=== PATIENT | female | born 1940 | race Caucasian/White ===

== ENCOUNTER 2017-11-23 08:18 | Inpatient (IN) | payer MEDICARE, OTHER ==
[2017-11-12 10:41] LABS: ABSOLUTE EOSINOPHILS 0.2 thou/uL (0.0-0.7); ABSOLUTE LYMPHOCYTES 1.8 thou/uL (0.8-5.3); ABSOLUTE MONOCYTES 0.7 thou/uL (0.0-1.2); ABSOLUTE NEUTROPHILS 2.9 thou/uL (1.6-8.1); BASOPHILS 0.8 %; EOSINOPHILS 3.7 %; HEMATOCRIT 38.3 % (37.0-47.0); HEMOGLOBIN 12.9 gm/dL (12.0-15.0); LYMPHOCYTES 32.5 %; MCH 29.2 pg (26.0-34.0); MCHC 33.6 g/dL (28.0-37.0); MCV 86.8 fL (80.0-100.0); MPV 8.1 fl. (7.2-11.1); NUCLEATED RBCS 0 /100WBC; PLATELET COUNT* 278 thou/uL (150-400); RBC 4.41 mil/uL (4.20-5.00); RDW-CV 14.5 % (10.5-14.5); WBC 5.6 thou/uL (4.0-11.0)
[2017-11-12 10:50] LABS: APTT 26.5 Seconds (25.0-31.3); INR 1.1; PROTIME 10.4 Seconds (9.20-11.50)
[2017-11-12 10:55] LABS: ALBUMIN 3.9 g/dL (3.4-5.0); CREATININE 0.8 mg/dL (0.6-1.3); POTASSIUM 3.9 mmol/L (3.5-5.1); TOTAL BILIRUBIN 0.7 mg/dL (<0.1-1.0); TOTAL PROTEIN 7.1 g/dL (6.4-8.2)
[2017-11-12 11:48] LABS: ESR (SEDRATE) 15 mm/hr (0-30)
--- NOTE | 2017-11-12 15:23 | EKG ---
[place] [address] ELECTROCARDIOGRAM REPORT Name: HANY JIANG Room: PRE [facility]#: [id number] Admission: Attend Phys: Regis Mccray Discharge: Date of : 42 Report #: [id number] THIS REPORT FOR: //name// [facility] Test Date: 2017-11-12 Test Time: 09:20:50 Pat Name: HANY APOLINAR Department: Room: Gender: F Analog Device Designer: : 1940 Requested By: Que Ding Order Number: [id number] Jia MD: Monty Veram Measurements Intervals [place] Rate: 59 P: 0 WA: 155 QRS: 53 QRSD: 93 T: 48 QT: 404 QTc: 401 Interpretive Statements Sinus rhythm No previous ECG available for comparison Electronically Signed On 11-12-2017 15:23:17 CDT by Monty Verma [email or web address] <ELECTRONICALLY SIGNED> By: Monty Verma MD, [facility] 11/12/17 1523 0920 0920 Monty Verma MD, FACC /EPI
[~2017-11-23] VITALS: Ht 157.5 cm; Wt 69.4 kg
[~2017-11-23 08:18] MED LIST: ATORVASTATIN CA40 MG PO; CELEBREX 200 M200 M1 PO; LISINOPRIL10 MG PO; SINGULAIR 10 MG10 M1 PO; TYLENOL325 MG PO
[2017-11-23] MEDS ORDERED: ADVAIR HFA 230M12 GM INH (08:36)
[2017-11-23 09:00] VITALS: BP 140/79
[2017-11-23 16:00] VITALS: BP 126/64
--- NOTE | 2017-11-23 16:56 | NUR ---
ASSUMED CARES OF PT FROM SURGERY AT 1510. PT IN BED, BED IN LOW LOCKED POSITION, FALL PRECAUTIONS IN PLACE. CALL BUTTON AND PERSONAL ITEMS IN PT REACH. PT A&O X4, HRRR PER AUSCULTATION, LCTAB. PT LEFT TOTAL KNEE REPLACEMENT. IV 1/2 NS INFUSING 100 ML/HR. PAIN MEDS HELPING TO CONTROL SURGICAL KNEE PAIN. PT AFEBRILE, PERRLA, VSS ON 2L NC UNTIL POSTOP DAY 1. MEPILEX DRESSING IN PLACE, C/D/I, KATHRIN HOSE IN PLACE AND SCD'S ON. PT HAS BILATERAL HEARING AIDS. RIGHT FA IV 20 GAUGE PATENT. CONTINUOUS PULSE OX ON FOR 24 HOURS. PEDAL PULSES +2-+3. LAST BM YESTERDAY. FULL CODE. PT PRESENTLY IN BED EATING DINNER. HOURLY ROUNDING TO CONTINUE. WILL MONITOR PT PROGRESS AND STATUS.
[2017-11-23 20:00] VITALS: BP 110/52
--- NOTE | 2017-11-23 20:02 | NUR ---
this nurse assumes care of pt at 1999, pt s alert and oriented, [place], pt complains of left knee pain, rates 7/10, ice pack being used and knee elevated, occcasional nonproductive cough noted, pt remains on 2l suplemental o2 with continuous pulse ox, houston cath intact to dependent drainage, pt son in law at bedside, bed in lowest position, call light within reach, bed alarm on
--- NOTE | 2017-11-23 21:16 | NUR ---
BEDSIDE REPORT TO DEPARTMENT OPERATIONS MANAGER FOR CONTINUED CARES. PT REMAINS STABLE, VSS ON 2L NC NOT WORN AT HOME. PAIN CONTROLLED WITH MEDS AT THIS TIME. FAMILY AT BEDSIDE. DAUGHTER TO SPEND NIGHT. PT PLEASANT. FLUIDS INFUSING IN RIGHT FA IV, TOLERATED. HOURLY ROUNDING COMPLETED. ASSESSMENT AND ADMISSION COMPLETED. PT RESTING IN BED, FALL PRECAUTIONS REMAIN IN PLACE.
[2017-11-24 00:28] VITALS: BP 98/46
[2017-11-24 04:56] LABS: HEMATOCRIT 30.4 % (37.0-47.0); HEMOGLOBIN 10.3 gm/dL (12.0-15.0)
[2017-11-24 05:13] VITALS: BP 103/42
--- NOTE | 2017-11-24 05:15 | NUR ---
pt rests queitly with daughter at bedside, pt pain controlled with PO meds throughout the night, pt continues on 2l supplemental o2, continuous pulse ox, houston cath draining clear yellow urine, pt continues on IVF and IV ABX with no adverse reaction, dressing to LLE dry and intact, tonie hose and scds in place, extremity is warm with normal pulses, no s/s acute distress during this shift
[2017-11-24 08:35] VITALS: BP 104/48
--- NOTE | 2017-11-24 09:24 | NUR ---
RECIEVED O.T. EVAL AND TX. WILL DEFER TO P.T. AND NURSING. PLEASE ORDER FURTHER O.T. SERVICES IF NEEDED.
[2017-11-24 16:10] VITALS: BP 111/55
--- NOTE | 2017-11-24 17:57 | NUR ---
PT.UP IN RECLINER. AT BEDSIDE. SLEEPY. STATED SHE LIVES WITH HER HUSBND. HE CAN ASSIST HER AT HOME NEEDED. SHE HAS A WALKER BUT DID NOT NEED TO USE IT PRIOR TO SURGERY. SHE IS A CURRENT PT.OF [facility]. SHE WOULD LIKE CM TO CHECK BACK TOMORROW TO SEE IF SHE WOULD RATHER HAVE HOME HEALTH OR OUTPT. SHE SAID HER COULD DRIVE HER. SHE IS NORMALLY INDEPENDENT AT HOME WITH ALL THINGS.
[2017-11-24 17:59] VITALS: BP 111/55
--- NOTE | 2017-11-24 18:57 | NUR ---
ALERT AND ORIENTED X4. UP WITH ASSIST X1 WITH WALKER AND GAIT BELT. IV IS PATENT AND SALINE LOCKED. PAIN BEING MANAGED WITH PO PAIN MEDICATION. DENIES NAUSEA. ATTENDED PHYSICAL THERAPY TWICE THIS SHIFT. DRESSING IS C/D/I. KATHRIN HOSE IN PLACE. ICE PACKS IN PLACE. VSS ON ROOM AIR. HOURLY ROUNDS HAVE BEEN MAINTAINED THROUGHOUT SHIFT. CALL LIGHT IS WITHIN REACH. NURSING WILL CONTINUE TO MONITOR.
[2017-11-24 21:00] VITALS: BP 132/56
[2017-11-25 00:43] VITALS: BP 129/63
[2017-11-25 04:00] LABS: HEMATOCRIT 32.8 % (37.0-47.0); HEMOGLOBIN 11.2 gm/dL (12.0-15.0)
[2017-11-25 04:34] VITALS: BP 123/56
--- NOTE | 2017-11-25 05:13 | NUR ---
PATIENT ALERT AND ORIENTED THROUGHOUT SHIFT. BLOOD PRESSURE AND OXYGEN SAT STABLE ON ROOM AIR. TEMPERATURE AND PULSE HAVE BEEN ELEVATED. TYLENOL WAS GIVEN TWICE. DOCTOR WAS PAGED. LABS, AND CHEST XRAY WERE ORDERED. PAIN MEDICATION WAS OFFERED AND PATIENT DECLINED. TRANSFERRING WITH STAFF TO BEDSIDE COMMODE. IV PATENT IN THE RIGHT FOREARM SALINE LOCKED. KATHRIN HOSE AND SCD'S IN PLACE BILAT. BED ALARM IN PLACE. CALL LIGHT WITHIN REACH. NURSING WILL CONTINUE TO MONITOR.
[2017-11-25 05:40] LABS: URINE BILIRUBIN NEGATIVE (Negative); URINE BLOOD 1+ (Negative); URINE CLARITY CLEAR; URINE COLOR YELLOW; URINE GLUCOSE-RANDOM NEGATIVE (Negative); URINE KETONES NEGATIVE (Negative); URINE LEUKOCYTES-REFLEX NEGATIVE (Negative); URINE NITRITE-REFLEX NEGATIVE (Negative); URINE PROTEIN NEGATIVE (Negative); URINE UROBILINOGEN 0.2 E.U./dl (0.2-1.0)
[2017-11-25 05:51] LABS: BACTERIA-REFLEX 1-9 Few /HPF (None Seen); CASTS None Seen /LPF (None Seen); CRYSTALS None Seen /LPF (None Seen); MUCUS 0-3 Light strn/LPF (None Seen); SQUAMOUS 0-3 Few /LPF (0-3); URINE RBC 3-10 Few /HPF (0-2); URINE WBC-REFLEX 0-5 Rare /HPF (0-5)
[2017-11-25 07:20] VITALS: BP 106/55
[2017-11-25] MEDS ORDERED: COLACE100 MG PO (08:26)
[2017-11-25] MEDS ORDERED: KEFLEX500 M1 PO ×2 (08:26→11:10)
[2017-11-25 10:55] VITALS: BP 111/55
[2017-11-25] MEDS ORDERED: ROXICODONE5 M2 PO (11:11)
[2017-11-25 12:50] VITALS: BP 115/59
--- NOTE | 2017-11-25 14:48 | NUR ---
Agree with student nurse Carolyn Faust's documentation
--- NOTE | 2017-11-25 15:16 | NUR ---
DISCHARGE PLANNED FOR TODAY. PT HAS CHOSEN HOME HEALTH. SHE WOULD LIKE TO USE [facility]. CONTACTED [facility] AND FAXED HER DISCHARGE ORDERS. CALLED IN [facility] PRESCRIPTION WRITTEN EARLIER TO ARIELLE/SIGRID MCMILLAN. HER COPAY IS $49. INFORMED PT.OF THIS. SHE SAID HER DAUGHTER WORKS FOR A [employer]ACK[employer] AND CAN GET HER A COUPON.
--- NOTE | 2017-11-25 15:54 | NUR ---
ASSUMED CARE OF PATIENT AFTER MORNING REPORT. ALERT AND ORIENTED X4. ASSESSMENT COMPLETED AND CHARTED. VSS ON ROOM AIR. PATIENTS PAIN HAS BEEN MANAGED WITH PAIN MEDICATION, NO COMPLAINTS OF NAUSEA THIS SHIFT. PATIENT WORKED WELL WITH THERAPY AND WILL HAVE HOME HEALTH WHEN SHE GOES HOME. PATIENT DISCHARGED AT 1550 WITH HER . ALL PERSONEAL BELONGINGS LEFT WITH PATIENT. DISCHARGE INSTRUCTIONS AND PRESCRIPTIONS LEFT WITH PATIENT UPON DISCHARGE.
--- NOTE | 2017-11-26 12:23 | S ---
[address] [address] SURGICAL PATH RPT PROCEDURE Name: HANY JIANG Room: [address] IN ..#: [id number] Admission: 11/23/17 Date of : 42 Discharge: 11/25/17 Report #: [id number] Path Case #: [id number] PATHOLOGY REPORT COLLECTION DATE: 11/23/2017 RECEIVED DATE: 11/23/2017 SUBMITTING PHYS: Dr. Que Ding OTHER PHYS: Dr. Isaac Gomez SPECIMEN(S) RECEIVED: A.L knee bone and tissue * * * * * * * * * * * * FINAL DIAGNOSIS: Left knee bone and tissue, total knee replacement: - Benign meniscus and synovium / fibrofatty tissue and benign bone and cartilage with severe degenerative changes. (DOUG:mm; 11/25/2017) PATHOLOGIST: Nelson Yarbrough M.D. REPORT ELECTRONICALLY SIGNED BY: Nelson Yarbrough M.D. DATE/TIME: 11/26/2017 12:22 * * * * * * * * * * * * GROSS PATHOLOGY: Received in formalin labeled "Hany Jiang left knee bone and tissue," are multiple segments of bone, including tibial plateau, measuring 12.6 x 8.8 x 1.8 cm in aggregate dimensions admixed with soft tissue; meniscus is present. The specimen shows focal eburnation of the articular surfaces. Business Education Professor sections of bone and soft tissue are submitted in cassette A1, following decalcification. (DAC; 11/24/2017) CLINICAL HISTORY: Left knee DJD INITIAL CPT CODE(S): A; 37938, 59861 Professional services performed by [facility] at [facility] [address] [place] [address] Technical services performed by [facility] at [address] [place] [address], [facility] [address] [address]. [place] [address] SURGICAL PATH RPT PROCEDURE Name: HANY JIANG Room: [address]#: [id number] Admission: 11/23/17 Date of : 42 Discharge: 11/25/17 Report #: [id number] Path Case #: [id number] [facility] [address] [place] [address] PHONE: [phone] DIRECTOR: Nigel Mckeon M.D. * * * END OF REPORT * * *
--- NOTE | 2017-12-28 16:45 | OP ---
[address] [address] OPERATIVE REPORT Name: HANY JIANG Room: [address]#: [id number] Admission: 11/23/17 Attend Phys: Regis Mccray Discharge: 11/25/17 Date of : 42 Report #: [id number] THIS REPORT FOR: //name// CC: Denise Gutiérrez DATE OF SERVICE: 11/23/2017 PREOPERATIVE DIAGNOSIS: Left knee degenerative joint disease. POSTOPERATIVE DIAGNOSIS: Left knee degenerative joint disease. PROCEDURE: Left total knee arthroplasty. SURGEON: Que Ding DO. INSIDE SALES ADVISOR: Lance Talley DO and Remi Ro DO ANESTHESIA: Spinal with adductor canal block as well as local posterior capsular block. ESTIMATED BLOOD LOSS: 175 mL. COMPLICATIONS: None. SPECIMENS: None. DRAINS: None. TOURNIQUET TIME: Zero. CONDITION: The patient is stable to PACU. IMPLANTS: A 62.5 mm Biomet Vanguard cruciate retained left, a 28 asymmetrical patella Biomet Vanguard system, 67 mm fixed cruciate tibial plate Biomet Vanguard system, and then a 14 mm tibial bearing the Biomet Vanguard system. One bag of Palacos bone cement. INDICATION FOR PROCEDURE: The patient is a 77-year-old female who has had ongoing knee pain and severe degenerative joint disease noted on x-ray that has been developing for some time. Clearly affecting the activities of daily living. She has failed conservative measures in the form of attempted weight loss, activity modification, PT, home exercise, steroid injections, oral medications. It was recommended she undergo left total knee arthroplasty. All risks, benefits, complications and indications were [place] [address] OPERATIVE REPORT Name: HANY JIANG Room: [address]#: [id number] Admission: 11/23/17 Attend Phys: Regis Mccray Discharge: 11/25/17 Date of : 42 Report #: [id number] She wished to proceed. Complications including but not limited to damaged neurovascular structures, postoperative infection, postoperative DVT, pulmonary embolism, intraoperative or postoperative fracture, potential loosening of hardware, possible need for future surgeries in the future and other adverse events secondary to being put under general anesthesia. The patient expressed understanding of the aforementioned and wished to proceed. DESCRIPTION OF PROCEDURE: The patient was met in the preoperative bay where operative site was marked. Consent form was signed. The patient was taken to the operative suite and placed supine on a well-padded table. Left lower extremity was sterilely prepped and draped in the standard fashion. Tourniquet was applied to the proximal thigh, which did not end up being used. Following the timeout, correct patient, procedure, operative site and confirmation of antibiotics being given in the form of Ancef 2 grams was given. Everybody in the room was in agreement. At this point, we began to proceed. A 20 blade scalpel was used to make a midline incision down through the skin and subcutaneous tissue. Following that, medial and lateral subcutaneous flaps were developed. A second inside knife was used to make a medial parapatellar arthrotomy. This was taken down to the joint through the anterior horn of the medial meniscus and a medial subperiosteal sleeve was developed at the time. Anterior horns of the medial and lateral meniscus were excised and excess fat pad was also removed. At that time, the patella was everted and the knee was brought up into flexion. Drill was used to find the intramedullary canal of the femur. Following that, an intramedullary femoral cutting guide was inserted into the distal femur. We elected to take 1 mm off the standard 10 mm distal femoral cutting block and 5 degrees of valgus. It was pinned into place and the distal femoral cut was made. Following resection of bone all excess was removed. AP sizing guide was then placed. The femur sized to a size 62.5. The 4-in-1 cutting block was then inserted onto the distal femur. Anterior, posterior cuts as well as anterior and posterior chamfer cuts were made. Following this, all excess bone was removed. Attention was then directed to the tibia. Extramedullary tibial guide was then positioned on the tibial crest, the anterior one-third margin of the tibial tubercle and aligned with the second ray. Once appropriate slope and position was judged, cutting guide was pinned into place. At this time, tibial resection was made with a saw. All excess meniscal tissue was thereafter removed with Bovie electrocautery. Tibial edges were cleaned up with a rongeur. Tibial sizing was then done, determined to be a size 67. The size 12 poly was used and noted to have too much laxity to valgus stress and anterior drawer at 90 degrees of flexion. We decided to switch her to 14 poly. Good stability was noted. At that time, a patellar resection was made and sized to a 28 mm asymmetrical patellar button. Three peg holes were drilled. The patella was tracking very well throughout the entire arc of motion. We removed the poly and prepared the tibia with the tibial drills. All instrumentation was removed. Bone ends were thoroughly lavaged with pulsatile. One bag of Palacos bone cement was mixed on the back table. At this point in time, cementing was carried out in the standard fashion, [place] [address] OPERATIVE REPORT Name: TEREANJALIHANY Gustafson Shayan Room: [address] IN [facility].#: [id number] Admission: 11/23/17 Attend Phys: Regis Mccray Discharge: 11/25/17 Date of : 42 Report #: [id number] followed by the femur, then the patella. We compressed with the size [address], allowed the cement to set up with the patellar clamp in place as well. Once the cement had hardened, we trialled with a size 14, deemed that to be most appropriate. This was placed and the locking bar was fixated. The knee was taken through final range of motion and full range of motion between 0 and 35 knee was ligamentously stable. Following this, the wound was thoroughly irrigated. A #1 Vicryl in a [id number] fashion was used to approximate the capsule, a dual needled Quill was used to run the remainder of the capsule after putting in the vancomycin powder. Superficial wound was irrigated again. The remainder of the cocktail was injected subcutaneously. A 2-0 Monocryl was used to approximate the wound subcutaneously followed by running 3-0 Stratafix and Dermabond glue. Mepilex dressing was placed followed by KATHRIN sanderson. The patient was brought to PACU in stable condition. All sponge and needle counts correct x 2. The patient will receive two more dose of Ancef every 8 hours following the procedure and given chemical DVT prophylaxis in the form of Eliquis as well as mechanical DVT prophylaxis in line with the PQRS standards. <ELECTRONICALLY SIGNED> By: Que Ding DO 12/28/17 1645 1523 1608Que Ding DO /nt
== END 2017-11-25 15:50 | disposition home health service (06) | DRG 470 ==
LOC: M.TBA 08:18 → M.ORTHSURG 08:18 → M.PRE 08:43 → M.ORTHSURG 15:12
PROVIDERS: Internal Medicine; Orthopaedic Surgery; ADMIT Internal Medicine
PROC: 0SRD0J9 Replacement of Left Knee Joint with Synthetic Substitute, Cemented, Open Approach (ICD-10-PCS; principal; 2017-11-23)
DX: M17.12 Unilateral primary osteoarthritis, left knee (principal); E78.00 Pure hypercholesterolemia, unspecified; I10 Essential (primary) hypertension; E78.5 Hyperlipidemia, unspecified; J45.909 Unspecified asthma, uncomplicated; Z80.9 Family history of malignant neoplasm, unspecified; Z82.49 Family history of ischemic heart disease and other diseases of the circulatory system; Z79.899 Other long term (current) drug therapy; Z87.891 Personal history of nicotine dependence; Z72.89 Other problems related to lifestyle